=== PATIENT | female | born 1945 | race Caucasian/White ===

== ENCOUNTER 2020-02-25 09:05 | Emergency (ER) | payer MEDICARE, BC ==
[2020-02-25 09:20] VITALS: BP 113/50; PULSE 86
--- NOTE | 2020-02-25 10:03 | EDM.PDOC ---
ED HPI GENERAL MEDICAL PROBLEM - General Chief Complaint: General Stated Complaint: covid symptoms Time Seen by Provider: 02/25/20 09:45 Source of Information: Reports: Patient History Limitations: Reports: No Limitations - History of Present Illness INITIAL COMMENTS - FREE TEXT/NARRATIVE: Patient is here for general weakness. It started about 2-3 days ago and seems to be getting worse. She has not been out of her house or exposed to anyone with covid for almost 2 weeks. She had a fever of 100.6 yesterday and it got up to 101 today so she came in. She does use a CPAP at night, but does not require oxygen at night. No urinary symptoms. No cough or shortness of breath even though she is satting low in the ER. No known source of infection. Back Pain Score (Numeric/FACES): 4 - Related Data Allergies Allergy/AdvReac Type Severity Reaction Status Date / Time erythromycin base Allergy Cannot Verified 02/25/20 09:20 Remember gentamicin [Gentamicin] Allergy Anaphylactic Verified 02/25/20 09:20 Shock Penicillins Allergy Anaphylactic Verified 02/25/20 09:20 Shock Home Meds: Home Meds RX: Cranberry 500 mg PO DAILY 07/09/15 [History] Clopidogrel Bisulfate [Clopidogrel] 75 mg PO DAILY 02/22/18 [History] Lisinopril 20 mg PO BID 02/22/18 [History] RX: Acetaminophen [Acetaminophen Extra Strength] 500 mg PO ASDIRECTED PRN 02/22/18 [History] RX: Budesonide [Rhinocort Allergy] 1 spray NASBOTH ASDIRECTED 02/22/18 [History] RX: LORazepam [Ativan] 0.5 mg PO ASDIRECTED PRN 02/22/18 [History] RX: NIFEdipine [Procardia XL] 30 mg PO DAILY 02/22/18 [History] RX: Naphazoline HCl/Pheniramine [Allergy Eye Drops] 7 drop EYEBOTH ASDIRECTED PRN 02/22/18 [History] RX: Vitamin E 200 units PO DAILY 02/22/18 [History] RX: atorvaSTATin [Lipitor] 40 mg PO BEDTIME 02/22/18 [History] Ubidecarenone [Coenzyme Q10] 100 mg PO DAILY 02/22/18 [History] Past Medical History HEENT History: Reports: Cataract, Impaired Vision, Other (See Below) Other HEENT History: TOP DENTURES Cardiovascular History: Reports: High Cholesterol, Hypertension Respiratory History: Reports: Sleep Apnea Gastrointestinal History: Reports: None Genitourinary History: Reports: Chronic Renal Insuffiency, Urinary Incontinence, UTI, Recurrent 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: , Spontaneous Musculoskeletal History: Reports: Fracture Other Musculoskeletal History: HX OF RIGHT ANKLE FRACTURE Neurological History: Reports: CVA, Migraines Psychiatric History: Reports: None Endocrine/Metabolic History: Reports: Obesity/BMI 30+, Osteopenia Hematologic History: Reports: None Immunologic History: Reports: None Oncologic (Cancer) History: Reports: None Dermatologic History: Reports: None - Infectious Disease History Infectious Disease History: Reports: Chicken Pox, Measles, Mumps - Past Surgical History Head Surgeries/Procedures: Reports: None HEENT Surgical History: Reports: None Cardiovascular Surgical History: Reports: None GI Surgical History: Reports: Colonoscopy, EGD Female Surgical History: Reports: Hysterectomy Endocrine Surgical History: Reports: None Neurological Surgical History: Reports: None Musculoskeletal Surgical History: Reports: Knee Replacement Oncologic Surgical History: Reports: None Dermatological Surgical History: Reports: None Social & Family History - Family History Family Medical History: No Pertinent Family History Cardiac: Reports: Aneurysm, [place] - Tobacco Use Tobacco Use Status *Q: Never Tobacco User Second Hand Smoke Exposure: No - Caffeine Use Caffeine Use: Reports: None Caffeine Use Comment: 'VERY LITTLE' - Recreational Drug Use Recreational Drug Use: No ED ROS GENERAL - Review of Systems Review Of Systems: Comprehensive ROS is negative, except as noted in HPI. ED EXAM, GENERAL - Physical Exam Exam: See Below Exam Limited By: No Limitations General Appearance: Alert, WD/WN, No Apparent Distress Ears: Normal External Exam Nose: Normal Inspection Throat/Mouth: Normal Inspection, Normal Lips, Normal Teeth Head: Atraumatic, Normocephalic Neck: Normal Inspection, Supple Respiratory/Chest: No Respiratory Distress, Lungs Clear, Normal Breath Sounds, No Accessory Muscle Use, Chest Non-Tender Cardiovascular: Normal Peripheral Pulses, Regular Rate, Rhythm, No Edema, No Murmur GI/Abdominal: Soft, Non-Tender, No Distention (Female) Exam: Deferred Rectal (Female) Exam: Deferred Back Exam: Normal Inspection, Full Range of Motion, NT Extremities: Normal Inspection, Normal Range of Motion, Non-Tender, Normal Capillary Refill Neurological: Alert, Oriented, CN II-XII Intact, Normal Cognition, Normal Gait, Normal Reflexes, No Motor/Sensory Deficits Psychiatric: Normal Affect, Normal Mood Skin Exam: Warm, Dry, Intact, Normal Color, No Rash Lymphatic: No Adenopathy Course - Vital Signs Last Recorded V/S: Last Vital Signs Temp 99.6 F 02/25/20 09:17 Pulse 86 02/25/20 09:17 Resp 18 02/25/20 09:17 BP 113/50 L 02/25/20 09:17 Pulse Ox 95 02/25/20 09:36 - Orders/Labs/Meds Orders: Active Orders 24 hr Category Date Time Status CULTURE BLOOD [BC] Stat Lab 02/25/20 10:20 Received CULTURE BLOOD [BC] Stat Lab 02/25/20 10:23 Received Blood Culture x2 Reflex Set [OM.PC] Stat Oth 02/25/20 09:58 Ordered Labs: Laboratory Tests 02/25/20 02/25/20 02/25/20 Range/Units 09:14 10:20 10:20 WBC 8.0 (5.0-10.0) 10^3/uL RBC 4.84 (4.2-5.4) 10^6/uL Hgb 15.2 (12.0-16.0) g/dL Hct 44.1 (37.0-47.0) % MCV 91.1 (80-100) fL MCH 31.4 (27.0-34.0) pg MCHC 34.5 (33.0-35.0) g/dL Plt Count 282 (150-450) 10^3/uL Neut % (Auto) 89.4 H (42.2-75.2) % Lymph % (Auto) 4.0 L (20.5-50.1) % [place] % (Auto) 6.4 (2-8) % Eos % (Auto) 0.1 L (1.0-3.0) % Baso % (Auto) 0.1 (0.0-1.0) % ABG pH (7.35-7.45) ABG pCO2 (35-45) mmHg ABG pO2 (70-100) mmHg ABG HCO3 (22-26) mmol/L ABG O2 Saturation (95-100) % ABG Base Excess ((-2)-(+3)) mmol/L Attila Test O2 Delivery Device Sodium 129 L (136-145) mmol/L Potassium 3.8 (3.5-5.1) mmol/L Chloride 94 L (98-107) mmol/L Carbon Dioxide 27 (21-32) mmol/L Anion Gap 11.8 (7-13) mEq/L BUN 11 (7-18) mg/dL Creatinine 0.95 (0.55-1.02) mg/dL Est Cr Clr Drug Dosing 40.76 mL/min Estimated GFR (MDRD) 57 BUN/Creatinine Ratio 11.6 (No establ ref range) Glucose 121 H (74-99) mg/dL Lactic Acid (0.4-2.0) mmol/L Calcium 9.0 (8.5-10.1) mg/dL Total Bilirubin 0.6 (0.2-1.0) mg/dL AST 31 (15-37) U/L ALT 16 (14-59) U/L Alkaline Phosphatase 86 (46-116) U/L Total Protein 7.4 (6.4-8.2) g/dL Albumin 3.1 L (3.4-5.0) g/dL Globulin 4.3 Albumin/Globulin Ratio 0.72 SARS CoV-2 RNA Rapid MIKI Negative (NEGATIVE) 02/25/20 02/25/20 Range/Units 10:20 10:27 WBC (5.0-10.0) 10^3/uL RBC (4.2-5.4) 10^6/uL Hgb (12.0-16.0) g/dL Hct (37.0-47.0) % MCV (80-100) fL MCH (27.0-34.0) pg MCHC (33.0-35.0) g/dL Plt Count (150-450) 10^3/uL Neut % (Auto) (42.2-75.2) % Lymph % (Auto) (20.5-50.1) % [place] % (Auto) (2-8) % Eos % (Auto) (1.0-3.0) % Baso % (Auto) (0.0-1.0) % ABG pH 7.48 H (7.35-7.45) ABG pCO2 32 L (35-45) mmHg ABG pO2 56 L (70-100) mmHg ABG HCO3 23.7 (22-26) mmol/L ABG O2 Saturation 88 L (95-100) % ABG Base Excess 1 ((-2)-(+3)) mmol/L Attila Test Performed O2 Delivery Device Nasal cannula Sodium (136-145) mmol/L Potassium (3.5-5.1) mmol/L Chloride (98-107) mmol/L Carbon Dioxide (21-32) mmol/L Anion Gap (7-13) mEq/L BUN (7-18) mg/dL Creatinine (0.55-1.02) mg/dL Est Cr Clr Drug Dosing mL/min Estimated GFR (MDRD) BUN/Creatinine Ratio (No establ ref range) Glucose (74-99) mg/dL Lactic Acid 1.4 (0.4-2.0) mmol/L Calcium (8.5-10.1) mg/dL Total Bilirubin (0.2-1.0) mg/dL AST (15-37) U/L ALT (14-59) U/L Alkaline Phosphatase (46-116) U/L Total Protein (6.4-8.2) g/dL Albumin (3.4-5.0) g/dL Globulin Albumin/Globulin Ratio SARS CoV-2 RNA Rapid MIKI (NEGATIVE) Departure - Departure Time of Disposition: 11:13 Disposition: Home, Self-Care 01 Clinical Impression: Common cold - Discharge Information Instructions: Shortness of Breath, Adult, [id number] Forms: ED Department Discharge Additional Instructions: Patient may have a component of COPD given her was a smoker Symptomatic treatment at home with over the counter medications Call or return to the ER if symptoms worsen Follow up with primary care provider in 5-7 days Sepsis Event Note (ED) - Evaluation Sepsis Screening Result: No Definite Risk - Focused Exam Vital Signs: Vital Signs Temp Pulse Resp BP Pulse Ox 02/25/20 09:36 95 02/25/20 09:17 99.6 F 86 18 113/50 L 93 L - My Orders Last 24 Hours: My Active Orders 02/25/20 09:58 Blood Culture x2 Reflex Set [OM.PC] Stat 02/25/20 10:20 CULTURE BLOOD [BC] Stat 02/25/20 10:23 CULTURE BLOOD [BC] Stat - Assessment/Plan Last 24 Hours: My Active Orders 02/25/20 09:58 Blood Culture x2 Reflex Set [OM.PC] Stat 02/25/20 10:20 CULTURE BLOOD [BC] Stat 02/25/20 10:23 CULTURE BLOOD [BC] Stat
--- NOTE | 2020-02-25 10:26 | CR ---
PROCEDURE INFORMATION: Exam: XR Chest, 2 Views Exam date and time: 02/25/2020 9:59 AM Age: 74 years old Clinical indication: Shortness of breath TECHNIQUE: Imaging protocol: XR of the chest Views: 2 views. COMPARISON: No relevant prior studies available. FINDINGS: Lungs: There is a right upper lobe longitudinal interstitial density with transverse linear densities of atelectasis. There are bilateral lower lobe linear densities consistent with atelectasis. There is hazy ground-glass density within the left mid lung. Pleural space: Unremarkable. No pleural effusion. No pneumothorax. Heart/Mediastinum: The mediastinal contour is normal. The cardiac structures are normal. Bones/joints: Distal thoracic spine spondylosis. No acute fracture. IMPRESSION: 1. Right upper lobe density may represent mild infiltrate but primarily atelectatic changes. Bilateral lower lobe fibrolinear changes or atelectasis 2. Left mid lung hazy ground-glass density suggest acute infiltrate.
[2020-02-25 10:38] LABS: BASE EXCESS ARTERIAL 1 mmol/L ((-2)-(+3)); BICARBONATE,ARTERIAL 23.7 mmol/L (22-26); O2 DELIVERY DEVICE NASAL CANNULA; O2 SATURATION ARTERIAL 88 % (95-100); PCO2 ARTERIAL 32 mmHg (35-45); PO2 ARTERIAL 56 mmHg (70-100)
[2020-02-25 10:39] LABS: ALLEN TEST PERFORMED
[2020-02-25 10:49] LABS: ANION GAP 11.8 mEq/L (7-13)
== END 2020-02-25 11:40 | disposition home or self-care (01) ==
LOC: DL.ED 09:05
DX: J00 Acute nasopharyngitis [common cold] (principal); E78.00 Pure hypercholesterolemia, unspecified; I12.9 Hypertensive chronic kidney disease with stage 1 through stage 4 chronic kidney disease, or unspecified chronic kidney disease; N18.9 Chronic kidney disease, unspecified; E66.9 Obesity, unspecified; Z68.30 Body mass index [BMI] 30.0-30.9, adult; Z20.828 Contact with and (suspected) exposure to other viral communicable diseases; Z86.73 Personal history of transient ischemic attack (TIA), and cerebral infarction without residual deficits; Z88.1 Allergy status to other antibiotic agents; Z88.0 Allergy status to penicillin; Z79.02 Long term (current) use of antithrombotics/antiplatelets; Z79.899 Other long term (current) drug therapy
CPT/HCPCS: 36415; 36600; 71046; 80053; 82803; 83605; 85025; 87040; 99282; 99284; U0002

== ENCOUNTER 2020-07-15 14:46 | Emergency (ER) | payer MEDICARE, BC ==
[~2020-07-15 14:46] MED LIST: Sodium Chloride 0.9% 10 ML Syringe FLUSH PRN
--- NOTE | 2020-07-15 15:03 | CT ---
PROCEDURE INFORMATION: Exam: CT Head Without Contrast Exam date and time: 07/15/2020 2:55 PM Age: 74 years old Clinical indication: Other: HX CVA with left sided weakness in 2016; Additional info: Stroke code: Acute altered mental status TECHNIQUE: Imaging protocol: Computed tomography of the head without contrast. Radiation optimization: All CT scans at this facility use at least one of these dose optimization techniques: automated exposure control; mA and/or kV adjustment per patient size (includes targeted exams where dose is matched to clinical indication); or iterative reconstruction. Other technique: STROKE PROTOCOL was implemented. COMPARISON: CT Head wo Cont 07/09/2015 9:47 PM FINDINGS: Brain: Age-related atrophy and chronic white matter ischemic changes, with no evidence of an acute intracranial abnormality. No hemorrhage, mass effect or midline shift. Cerebral ventricles: No ventriculomegaly. Bones/joints: No acute fracture. Paranasal sinuses: Visualized sinuses are unremarkable. No fluid levels. Mastoid air cells: Visualized mastoid air cells are well aerated. Soft tissues: No acute changes IMPRESSION: 1. Age-related atrophy and chronic white matter ischemic changes, with no evidence of an acute intracranial abnormality. 2. No hemorrhage, mass effect or midline shift. ASSESSMENT: ASPECTS ([facility] Stroke Program Early CT Score) is 10.
[2020-07-15 15:10] VITALS: BP 129/74; PULSE 83
--- NOTE | 2020-07-15 15:12 | CR ---
PROCEDURE INFORMATION: Exam: XR Chest Exam date and time: 07/15/2020 3:08 PM Age: 74 years old Clinical indication: Other: Altered mentation; Additional info: Alt. Mental status, poss. Aspiration TECHNIQUE: Imaging protocol: XR of the chest Views: 1 view. COMPARISON: CR Chest 2V 02/25/2020 9:59 AM FINDINGS: Lungs: Knee patchy airspace opacity noted within the medial aspect of the right lung base may represent atelectasis or developing pneumonia. Mild hyperinflation. Pleural spaces: Unremarkable. No pleural effusion. No pneumothorax. Heart/Mediastinum: Unremarkable. No cardiomegaly. Bones/joints: Unremarkable. IMPRESSION: 1. Knee patchy airspace opacity noted within the medial aspect of the right lung base may represent atelectasis or developing pneumonia. 2. Mild hyperinflation.
[2020-07-15 15:39] LABS: PTT,PARTIAL THROMBOPLSTIN TIME 21.9 SEC (22.0-34.0)
[2020-07-15 15:44] LABS: ANION GAP 15.9 mEq/L (7-13); CHLORIDE,CL 104 mmol/L (98-107); SODIUM,NA 143 mmol/L (136-145)
--- NOTE | 2020-07-15 17:06 | EDM.PDOC ---
"Scribed by Mariana Foster 07/15/20 1523 for Elizabeth Mtz MD ED HPI GENERAL MEDICAL PROBLEM - General Chief Complaint: Neuro Symptoms/Deficits Stated Complaint: AMBULANCE Time Seen by Provider: 07/15/20 14:47 Source of Information: Reports: Patient, EMS, EMS Notes Reviewed, RN, RN Notes Reviewed History Limitations: Reports: No Limitations - History of Present Illness INITIAL COMMENTS - FREE TEXT/NARRATIVE: Patient arrives to ED by [facility] stating that she woke up and she thought that might be something wrong in the right eye, but blurriness but perhaps a slight double vision, but it resolved by the time she got up and prepared for the day. She cooked a large holiday dinner for her family and hosted the dinner during which time she felt normal and had no concerns. After dinner her daughter was helping her clean and commented that the patient seemed to be confusing common daily facts. Such as the patient was talking about her dog needing to care for it, when in fact the dog has been for several years. Her daughter is an RN and so began questioning the patient and discovered that the patient was confused about dates, time and some names. Patient states that she feels alert and orientated. She knows that this is Easter, but cannot state the year. When asked who the President was and without hesitation she stated Enmanuel Garcia. She denies headache, denies current visual changes, neck pain, difficulty with speech or swallowing, slurring of speech or face droop, motor weakness to the upper and lower extremities or any altered sensation. Denies any recnet fall or head injury. 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 She denies any recent medication changes and states she has taken her Plavis today as described. Onset: Today Duration: Getting Worse Location: Reports: Head Severity: Severe Improves with: Reports: None Worsens with: Reports: None Associated Symptoms: Reports: No Other Symptoms - Related Data Allergies Allergy/AdvReac Type Severity Reaction Status Date / Time erythromycin base Allergy Cannot Verified 02/25/20 09:20 Remember gentamicin [Gentamicin] Allergy Anaphylactic Verified 02/25/20 09:20 Shock Penicillins Allergy Anaphylactic Verified 02/25/20 09:20 Shock Home Meds: Home Meds Cranberry 500 mg PO DAILY 03/28/16 [History] Acetaminophen [Acetaminophen Extra Strength] 500 mg PO ASDIRECTED PRN 02/22/18 [History] Budesonide [Rhinocort Allergy] 1 spray NASBOTH ASDIRECTED 02/22/18 [History] Clopidogrel Bisulfate [Clopidogrel] 75 mg PO DAILY 02/22/18 [History] LORazepam [Ativan] 0.5 mg PO ASDIRECTED PRN 02/22/18 [History] Lisinopril 20 mg PO BID 02/22/18 [History] NIFEdipine [Procardia XL] 30 mg PO DAILY 02/22/18 [History] Naphazoline HCl/Pheniramine [Allergy Eye Drops] 7 drop EYEBOTH ASDIRECTED PRN 02/22/18 [History] Ubidecarenone [Coenzyme Q10] 100 mg PO DAILY 02/22/18 [History] Vitamin E 200 units PO DAILY 02/22/18 [History] atorvaSTATin [Lipitor] 40 mg PO BEDTIME 02/22/18 [History] Past Medical History HEENT History: Reports: Cataract, Impaired Vision, Other (See Below) Other HEENT History: TOP DENTURES Cardiovascular History: Reports: High Cholesterol, Hypertension Respiratory History: Reports: Sleep Apnea Gastrointestinal History: Reports: None Genitourinary History: Reports: Chronic Renal Insuffiency, Urinary Incontinence, UTI, Recurrent [employer]ENT History: Reports: , Spontaneous Musculoskeletal History: Reports: Fracture Other Musculoskeletal History: HX OF RIGHT ANKLE FRACTURE Neurological History: Reports: CVA, Migraines Psychiatric History: Reports: None Endocrine/Metabolic History: Reports: Obesity/BMI 30+, Osteopenia Hematologic History: Reports: None Immunologic History: Reports: None Oncologic (Cancer) History: Reports: None Dermatologic History: Reports: None - Infectious Disease History Infectious Disease History: Reports: Chicken Pox, Measles, Mumps - Past Surgical History Head Surgeries/Procedures: Reports: None HEENT Surgical History: Reports: None Cardiovascular Surgical History: Reports: None GI Surgical History: Reports: Colonoscopy, EGD Female Surgical History: Reports: Hysterectomy Endocrine Surgical History: Reports: None Neurological Surgical History: Reports: None Musculoskeletal Surgical History: Reports: Knee Replacement Oncologic Surgical History: Reports: None Dermatological Surgical History: Reports: None Social & Family History - Family History Family Medical History: No Pertinent Family History Cardiac: Reports: Aneurysm, NM - Caffeine Use Caffeine Use: Reports: None Caffeine Use Comment: 'VERY LITTLE' ED ROS GENERAL - Review of Systems Review Of Systems: Comprehensive ROS is negative, except as noted in HPI. ED EXAM, NEURO - Physical Exam Exam: See Below Exam Limited By: No Limitations General Appearance: Alert, WD/WN, No Apparent Distress Eye Exam: Bilateral Eye: EOMI, Normal Inspection (No visual field deficits), PERRL Ears: Normal External Exam, Normal Canal, Hearing Grossly Normal, Normal TMs Nose: Normal Inspection, Normal Mucosa, No Blood Throat/Mouth: Normal Inspection, Normal Lips, Normal Teeth, Normal Gums, Normal Oropharynx, Normal Voice, No Airway Compromise Head Exam: Atraumatic, Normocephalic Neck: Normal Inspection, Supple, Non-Tender, Full Range of Motion. No: Carotid Bruit Respiratory/Chest: No Respiratory Distress, Lungs Clear, Normal Breath Sounds, No Accessory Muscle Use, Chest Non-Tender Cardiovascular: Normal Peripheral Pulses, Regular Rate, Rhythm, No Edema, No Gallop, No JVD, No Murmur, No Rub GI/Abdominal: Normal Bowel Sounds, Soft, Non-Tender, No Organomegaly, No Distention, No Abnormal Bruit, No Mass Neurological: Alert, Normal Mood/Affect, Normal Dorsiflexion, CN II-XII Intact, Normal Plantar Flexion, Normal Gait, Normal Reflexes, No Motor/Sensory Deficits, Other (Oriented to person and place. Knows that it is Easter, but does not know the day, month, or year. Does not know her , or age.) Back Exam: Normal Inspection, Full Range of Motion, NT Extremities: Normal Inspection, Normal Range of Motion, Non-Tender, No Pedal Edema, Normal Capillary Refill Psychiatric: Normal Affect, Normal Mood Skin Exam: Warm, Dry, Intact, Normal Color, No Rash #1 Interpretation EKG Date: 07/15/20 Time: 15:09 Rhythm: Other (sinus rhythm) Rate (Beats/Min): 73 [place]: LAD-Left [place] Deviation P-Wave: Present (consider right atrial enlargement) QRS: Other (abnormal R-wave progression, late transition.) ST-T: Normal QT: Normal MA/PQ Interval: prolonged Comparison: NA - No Prior EKG Course - Vital Signs Last Recorded V/S: Last Vital Signs Temp 97.7 F 07/15/20 15:03 Pulse 83 04/04/21 15:03 Resp 14 07/15/20 15:03 BP 129/74 07/15/20 15:03 Pulse Ox 95 07/15/20 15:03 - Orders/Labs/Meds Orders: Active Orders 24 hr Category Date Time Status Blood Glucose Check, Bedside [RC] ONETIME Care 07/15/20 14:43 Active EKG 12 Lead [EKG Documentation Completion] [RC] STAT Care 07/15/20 14:45 Active NIH Stroke Scale [RC] ASDIRECTED Care 07/15/20 14:44 Active Peripheral IV Care [RC] . DIRECTED Care 07/15/20 14:45 Active CULTURE URINE [] Stat Lab 07/15/20 15:26 Received Sodium Chloride 0.9% [Saline Flush] Med 07/15/20 14:44 Active 10 ml FLUSH ASDIRECTED PRN Peripheral IV Insertion Adult [OM.PC] Stat Oth 07/15/20 14:45 Ordered Medication Orders Sodium Chloride (Sodium Chloride 0.9% 10 Ml Syringe) 10 ml FLUSH ASDIRECTED PRN PRN Reason: Keep Vein Open Last Admin: 07/15/20 15:07 Dose: 10 ml Documented by: JOSE EDUARDO Labs: Laboratory Tests 07/15/20 07/15/20 07/15/20 Range/Units 14:59 14:59 14:59 WBC 9.1 (5.0-10.0) 10^3/uL RBC 5.23 (4.2-5.4) 10^6/uL Hgb 16.1 H (12.0-16.0) g/dL Hct 48.8 H (37.0-47.0) % MCV 93.3 (80-100) fL MCH 30.8 (27.0-34.0) pg MCHC 33.0 (33.0-35.0) g/dL Plt Count 364 D (150-450) 10^3/uL Neut % (Auto) 68.0 (42.2-75.2) % Lymph % (Auto) 19.9 L (20.5-50.1) % [place] % (Auto) 10.3 H (2-8) % Eos % (Auto) 1.5 (1.0-3.0) % Baso % (Auto) 0.3 (0.0-1.0) % PT 10.3 (9.0-12.0) SEC INR 1.0 (0.9-1.2) APTT 21.9 L (22.0-34.0) SEC Sodium 143 D (136-145) mmol/L Potassium 3.9 (3.5-5.1) mmol/L Chloride 104 (98-107) mmol/L Carbon Dioxide 27 (21-32) mmol/L Anion Gap 15.9 H (7-13) mEq/L BUN 11 (7-18) mg/dL Creatinine 0.94 (0.55-1.02) mg/dL Est Cr Clr Drug Dosing TNP Estimated GFR (MDRD) 58 BUN/Creatinine Ratio 11.7 (No establ ref range) Glucose 96 (74-99) mg/dL POC Glucose (83-110) mg/dl Calcium 9.2 (8.5-10.1) mg/dL Total Bilirubin 0.5 (0.2-1.0) mg/dL AST 29 (15-37) U/L ALT 28 (14-59) U/L Alkaline Phosphatase 87 (46-116) U/L Troponin I < 0.017 (0.000-0.056) ng/mL B-Natriuretic Peptide 36 (0-100) pg/ml Total Protein 7.7 (6.4-8.2) g/dL Albumin 4.0 (3.4-5.0) g/dL Globulin 3.7 Albumin/Globulin Ratio 1.1 Urine Color (YELLOW) Urine Appearance (CLEAR) Urine pH (5.0-9.0) Ur Specific [place] (1.005-1.030) Urine Protein (NEGATIVE) Urine Glucose (UA) (NEGATIVE) Urine Ketones (NEGATIVE) Urine Occult Blood (NEGATIVE) Urine Nitrite (NEGATIVE) Urine Bilirubin (NEGATIVE) Urine Urobilinogen (0.2-1.0) mg/dL Ur Leukocyte Esterase (NEGATIVE) Urine RBC /HPF Urine WBC (0-5/HPF) /HPF Ur Epithelial Cells (NOT SEEN) /HPF Amorphous Sediment (NOT SEEN) /HPF Urine Bacteria (0-FEW/HPF) /HPF Urine Mucus (NOT SEEN) /LPF Urine Opiates Screen (NEGATIVE) Ur Oxycodone Screen (NEGATIVE) Urine Methadone Screen (NEGATIVE) Ur Barbiturates Screen (NEGATIVE) U Tricyclic Antidepress (NEGATIVE) Ur Phencyclidine Scrn (NEGATIVE) Ur Amphetamine Screen (NEGATIVE) U Methamphetamines Scrn (NEGATIVE) Urine MDMA Screen (NEGATIVE) U Benzodiazepines Scrn (NEGATIVE) Urine Cocaine Screen (NEGATIVE) U Marijuana (THC) Screen (NEGATIVE) Ethyl Alcohol < 3 (0) mg/dL 07/15/20 07/15/20 07/15/20 Range/Units 15:01 15:26 15:26 WBC (5.0-10.0) 10^3/uL RBC (4.2-5.4) 10^6/uL Hgb (12.0-16.0) g/dL Hct (37.0-47.0) % MCV (80-100) fL MCH (27.0-34.0) pg MCHC (33.0-35.0) g/dL Plt Count (150-450) 10^3/uL Neut % (Auto) (42.2-75.2) % Lymph % (Auto) (20.5-50.1) % [place] % (Auto) (2-8) % Eos % (Auto) (1.0-3.0) % Baso % (Auto) (0.0-1.0) % PT (9.0-12.0) SEC INR (0.9-1.2) APTT (22.0-34.0) SEC Sodium (136-145) mmol/L Potassium (3.5-5.1) mmol/L Chloride (98-107) mmol/L Carbon Dioxide (21-32) mmol/L Anion Gap (7-13) mEq/L BUN (7-18) mg/dL Creatinine (0.55-1.02) mg/dL Est Cr Clr Drug Dosing Estimated GFR (MDRD) BUN/Creatinine Ratio (No establ ref range) Glucose (74-99) mg/dL POC Glucose 101 (83-110) mg/dl Calcium (8.5-10.1) mg/dL Total Bilirubin (0.2-1.0) mg/dL AST (15-37) U/L ALT (14-59) U/L Alkaline Phosphatase (46-116) U/L Troponin I (0.000-0.056) ng/mL B-Natriuretic Peptide (0-100) pg/ml Total Protein (6.4-8.2) g/dL Albumin (3.4-5.0) g/dL Globulin Albumin/Globulin Ratio Urine Color Yellow (YELLOW) Urine Appearance Slightly cloudy (CLEAR) Urine pH 5.5 (5.0-9.0) Ur Specific [place] >= 1.030 (1.005-1.030) Urine Protein Negative (NEGATIVE) Urine Glucose (UA) Negative (NEGATIVE) Urine Ketones 15 H (NEGATIVE) Urine Occult Blood Negative (NEGATIVE) Urine Nitrite Negative (NEGATIVE) Urine Bilirubin Negative (NEGATIVE) Urine Urobilinogen 0.2 (0.2-1.0) mg/dL Ur Leukocyte Esterase Trace H (NEGATIVE) Urine RBC 0-5 /HPF Urine WBC 0-5 (0-5/HPF) /HPF Ur Epithelial Cells Few (NOT SEEN) /HPF Amorphous Sediment Few (NOT SEEN) /HPF Urine Bacteria Few (0-FEW/HPF) /HPF Urine Mucus Few H (NOT SEEN) /LPF Urine Opiates Screen Negative (NEGATIVE) Ur Oxycodone Screen Negative (NEGATIVE) Urine Methadone Screen Negative (NEGATIVE) Ur Barbiturates Screen Negative (NEGATIVE) U Tricyclic Antidepress Negative (NEGATIVE) Ur Phencyclidine Scrn Negative (NEGATIVE) Ur Amphetamine Screen Negative (NEGATIVE) U Methamphetamines Scrn Negative (NEGATIVE) Urine MDMA Screen Negative (NEGATIVE) U Benzodiazepines Scrn Negative (NEGATIVE) Urine Cocaine Screen Negative (NEGATIVE) U Marijuana (THC) Screen Negative (NEGATIVE) Ethyl Alcohol (0) mg/dL Meds: Medications Generic Name Dose Route Start Last Admin Trade Name Freq PRN Reason Stop Dose Admin Sodium Chloride 10 ml 07/15/20 14:44 07/15/20 15:07 Sodium Chloride 0.9% 10 Ml Syringe FLUSH 10 ml ASDIRECTED PRN Administration Keep Vein Open - Radiology Interpretation Free Text/Narrative:: [facility] Final Radiology Report Call: [phone] assistance Online chat: [email or web address] Name: CANDELARIA NO Age: 74Years F Date: 07/15/2020 SSN: -- : 1945 Study: CR CHEST 1V FRONTAL Requesting Physician: ELIZABEHT MTZ Images: 1 Addl Studies: Provided Clinical History: Alt. mental status, poss. aspiration Contrast: Contrast Medium: Contrast Amount: Contrast Method: CONFIDENTIALITY STATEMENT This report is intended only for use by the referring physician, and only in accordance with law. If you received this in error, call [phone]. Page 1 of 1 PROCEDURE INFORMATION: Exam: XR Chest Exam date and time: 07/15/2020 3:08 PM Age: 74 years old Clinical indication: Other: Altered mentation; Additional info: Alt. Mental status, poss. Aspiration TECHNIQUE: Imaging protocol: XR of the chest Views: 1 view. COMPARISON: CR Chest 2V 02/25/2020 9:59 AM FINDINGS: Lungs: Knee patchy airspace opacity noted within the medial aspect of the right lung base may represent atelectasis or developing pneumonia. Mild hyperinflation. Pleural spaces: Unremarkable. No pleural effusion. No pneumothorax. Heart/Mediastinum: Unremarkable. No cardiomegaly. Bones/joints: Unremarkable. IMPRESSION: 1. Knee patchy airspace opacity noted within the medial aspect of the right lung base may represent atelectasis or developing pneumonia. 2. Mild hyperinflation. Thank you for allowing us to participate in the care of your patient. Dictated and Authenticated by: Naveen Puente DO 07/15/2020 3:12 PM Central Time ([place] & Dat) [facility] Final Radiology Report Call: [phone] assistance Online chat: [email or web address] Name: CANDELARIA NO Age: 74Years F Date: 07/15/2020 SSN: -- : 1945 Study: CT HEAD WO CONT Requesting Physician: ELIZABETH MTZ Images: 150 Addl Studies: Provided Clinical History: STROKE CODE: acute altered mental status Contrast: Without Contrast Medium: Contrast Amount: Contrast Method: Page 1 of 2 PROCEDURE INFORMATION: Exam: CT Head Without Contrast Exam date and time: 07/15/2020 2:55 PM Age: 74 years old Clinical indication: Other: HX CVA with left sided weakness in 2016; Additional info: Stroke code: Acute altered mental status TECHNIQUE: Imaging protocol: Computed tomography of the head without contrast. Radiation optimization: All CT scans at this facility use at least one of these dose optimization techniques: automated exposure control; mA and/or kV adjustment per patient size (includes targeted exams where dose is matched to clinical indication); or iterative reconstruction. Other technique: STROKE PROTOCOL was implemented. COMPARISON: CT Head wo Cont 07/09/2015 9:47 PM FINDINGS: Brain: Age-related atrophy and chronic white matter ischemic changes, with no evidence of an acute intracranial abnormality. No hemorrhage, mass effect or midline shift. Cerebral ventricles: No ventriculomegaly. Bones/joints: No acute fracture. Paranasal sinuses: Visualized sinuses are unremarkable. No fluid levels. Mastoid air cells: Visualized mastoid air cells are well aerated. Soft tissues: No acute changes IMPRESSION: 1. Age-related atrophy and chronic white matter ischemic changes, with no evidence of an acute intracranial abnormality. 2. No hemorrhage, mass effect or midline shift. CANDELARIA NO | Final Radiology Report CONFIDENTIALITY STATEMENT This report is intended only for use by the referring physician, and only in accordance with law. If you received this in error, call [phone]. Page 2 of 2 ASSESSMENT: ASPECTS ([place] Stroke Program Early CT Score) is 10. Thank you for allowing us to participate in the care of your patient. Dictated and Authenticated by: Naveen Puente DO 07/15/2020 3:03 PM Central Time ([place] & Dat) Departure - Departure Time of Disposition: 15:50 Disposition: DC/Tfer to Acute Hospital 02 Condition: Undetermined Clinical Impression: CVA (cerebral vascular accident) Qualifiers: CVA mechanism: unspecified Qualified Code(s): I63.9 - Cerebral infarction, unspecified - Discharge Information *PRESCRIPTION DRUG MONITORING PROGRAM REVIEWED*: Not Applicable *COPY OF PRESCRIPTION DRUG MONITORING REPORT IN PATIENT [facility]: Not Applicable Forms: ED Department Discharge, Interfacility Transfer EMTALA Sepsis Event Note (ED) - Focused Exam Vital Signs: Vital Signs Temp Pulse Resp BP Pulse Ox 07/15/20 15:03 97.7 F 83 14 129/74 95 - My Orders Last 24 Hours: My Active Orders 07/15/20 14:43 Blood Glucose Check, Bedside [RC] ONETIME 07/15/20 14:44 NIH Stroke Scale [RC] ASDIRECTED Sodium Chloride 0.9% [Saline Flush] 10 ml FLUSH ASDIRECTED PRN 07/15/20 14:45 EKG 12 Lead [EKG Documentation Completion] [RC] STAT Peripheral IV Care [RC] . DIRECTED Peripheral IV Insertion Adult [OM.PC] Stat 07/15/20 15:26 CULTURE URINE [RM] Stat - Assessment/Plan Last 24 Hours: My Active Orders 07/15/20 14:43 Blood Glucose Check, Bedside [RC] ONETIME 07/15/20 14:44 NIH Stroke Scale [RC] ASDIRECTED Sodium Chloride 0.9% [Saline Flush] 10 ml FLUSH ASDIRECTED PRN 07/15/20 14:45 EKG 12 Lead [EKG Documentation Completion] [RC] STAT Peripheral IV Care [RC] . DIRECTED Peripheral IV Insertion Adult [OM.PC] Stat 07/15/20 15:26 CULTURE URINE [RM] Stat I have read and agree with the documentation that has been completed regarding this visit. By signing this record, I attest that the documentation was completed in my physical presence and is an accurate record of the encounter."
== END 2020-07-15 18:14 ==
LOC: DL.ED 14:46
DX: I63.9 Cerebral infarction, unspecified (principal); E78.00 Pure hypercholesterolemia, unspecified; I12.9 Hypertensive chronic kidney disease with stage 1 through stage 4 chronic kidney disease, or unspecified chronic kidney disease; N18.9 Chronic kidney disease, unspecified; E66.9 Obesity, unspecified; Z88.1 Allergy status to other antibiotic agents; Z88.0 Allergy status to penicillin; Z79.02 Long term (current) use of antithrombotics/antiplatelets; Z79.899 Other long term (current) drug therapy
CPT/HCPCS: 36415; 70450; 71045; 80053; 80305-QW; 80307; 81001; 82962; 83880; 84484; 85025; 85610; 85730; 87086; 87088; 87186; 93005; 93010; 99285; 99285-25